=== PATIENT | male | born 1980 | race Caucasian/White ===

== ENCOUNTER → 2017-01-24 | Outpatient (CLI) | payer MEDICAID ==
[~2017-01-24] MED LIST: ASPIRIN 81MG TA81 MG PO; CIPRO 500MG TA500 MG PO; DILAUDID2 MG PO; MEDROL 4MG. DOSE4 MG PO; MULTI-VITAMIN1 EACH PO; PERCOCET1 TA1 PO; TORADOL10 M1 PO; TRAMADOL 50MG T50 M1 PO; VITAMIN C500 M1 PO
[2017-01-24 12:28] LABS: BUN 11 mg/dL (7-18)
[2017-01-24 12:29] LABS: GFR (ESTIMATED) 110 ML/MIN (>60)
== END ==
LOC: LAB 07:49
PROVIDERS: Internal Medicine Adolescent Medicine
DX: E78.5 Hyperlipidemia, unspecified (principal); R53.81 Other malaise